=== PATIENT | male | born 1995 | race Caucasian/White ===

== ENCOUNTER 2019-08-11 13:50 | Outpatient (CLI) | payer OTHER, SELFPAY ==
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
== END 2019-08-11 13:51 | disposition home or self-care (01) ==
LOC: CHSIMG 13:52
PROVIDERS: PCP Family Medicine; Visit Provider Family Medicine
DX: M54.5 Low back pain (principal); S16.1XXA Strain of muscle, fascia and tendon at neck level, initial encounter; M54.6 Pain in thoracic spine
CPT/HCPCS: 72040; 72072; 72100

== ENCOUNTER 2020-05-31 14:39 | Outpatient (CLI) | payer OTHER, SELFPAY ==
--- NOTE | ~2020-05-31 | XR_ITS ---
XR chest 2V DATE: 05/31/2020 15:07 INDICATION: Shortness of breath. Unexplained weight loss. TECHNIQUE: PA and lateral views COMPARISON: None FINDINGS: Normal heart size. No hilar or mediastinal enlargement. No pulmonary infiltrate or consolid ation, pleural effusion or pulmonary vascular congestion or pneumothorax. IMPRESSION: No active cardiopulmonary disease Reviewed, dictated and finalized at location A. [employer]
[2020-05-31 14:51] LABS: Basophils Absolute Auto 0.04 K/mm3 (0.00-0.10); Basophils Percent Auto 0.6 % (0.0-1.0); Eosinophils Absolute Auto 0.31 K/mm3 (0.02-0.50); Eosinophils Percent Auto 4.5 % (1.0-6.0); Hematocrit 48.6 % (40.0-54.0); Hemoglobin 16.9 g/dL (14.0-18.0); Immature Granulocyte Absolute 0.01 K/mm3 (0.00-0.00); Immature Granulocyte Percent A 0.1 % (0.0-0.0); Lymphocytes Absolute Auto 2.95 K/mm3 (1.10-4.50); Lymphocytes Percent Auto 42.7 % (18.0-42.0); Mean Corpuscular HGB Conc 34.8 g/dL (32.0-36.0); Mean Corpuscular Hemoglobin 30.1 pg (27.0-31.0); Mean Corpuscular Volume 86.6 fL (78.0-102.0); Mean Platelet Volume 9.6 fl (8.7-11.0); Monocytes Percent Auto 7.2 % (2.0-11.0); Neutrophils Absolute Auto 3.1 K/mm3 (1.7-7.2); Neutrophils Percent Auto 44.9 % (50.0-70.0); Platelet Count Result 374 K/mm3 (150-420); Red Blood Count 5.61 M/mm3 (4.70-6.10); Red Cell Distribution Width 11.6 % (11.6-14.4); White Blood Count 6.9 K/mm3 (4.8-10.8)
[2020-05-31 15:52] LABS: Erythrocyte Sedimentation Rate 2 mm/hr (0-15)
[2020-05-31 16:00] LABS: Alanine Aminotransferase 26 U/L (16-63); Albumin Level 4.5 g/dL (3.4-5.0); Alkaline Phosphatase 95 U/L (46-116); Anion Gap 11 mmol/L (8-16); Aspartate Amino Transferase 13 U/L (15-37); Bilirubin,Total 0.6 mg/dL (0.00-1.00); Blood Urea Nitrogen 6 mg/dL (7-18); Calcium 9.7 mg/dL (8.5-10.1); Carbon Dioxide 28 mmol/L (21-32); Chloride 101 mmol/L (98-108); Estimated Glomerular Filt Rate > 60; Glucose 101 mg/dL (70-99); Lipase 54 U/L (73-393); Osmolality Calculated 287 mOsm/kg (285-295); Potassium 4.1 mmol/L (3.5-5.1); Sodium 140 mmol/L (136-145); Thyroid Stimulating Hormone 1.03 uIU/mL (0.36-3.74); Total Protein 7.2 g/dL (6.4-8.2)
== END 2020-05-31 14:40 | disposition home or self-care (01) ==
LOC: CHSLAB 14:41
PROVIDERS: PCP Family Medicine; Visit Provider Physician Assistant
DX: R63.4 Abnormal weight loss (principal); R06.02 Shortness of breath
CPT/HCPCS: 36415; 71046; 80053; 83690; 84443; 85025; 85652

== ENCOUNTER → 2020-08-06 06:49 | Outpatient (CLI) | payer OTHER, SELFPAY ==
[2020-08-06 19:17] LABS: SARS-CoV-2 RNA PCR Negative
== END ==
PROVIDERS: PCP Family Medicine; Visit Provider Internal Medicine Gastroenterology
DX: Z01.812 Encounter for preprocedural laboratory examination (principal); Z20.822 Contact with and (suspected) exposure to COVID-19
CPT/HCPCS: C9803; U0003; U0005

== ENCOUNTER 2020-08-10 01:41 | Day surgery (SDC) | payer OTHER, SELFPAY ==
[2020-08-02 14:17] VITALS: BMI 23.6
[2020-08-10 12:03] VITALS: BP 139/92; PULSE 104; RESP 16; TEMP 36.6; O2SAT 100
[2020-08-10] MEDS: LACTATED RINGERS 1,000 ML 150 ML IV CONT (12:06)
--- NOTE | 2020-08-10 12:21 | WPDANESEPPF ---
Anes - Initial Pre Proc Eval Procedure: Operation Date: 08/10/20 13:15 Proposed Procedures p Esophagogastroduodenoscopy & Colonoscopy - Kota Galeas MD Date/Time: 08/10/20 12:21 Surgeon: Kota Galeas MD Pre Op Diagnosis: weight loss, nausea Patient Data Age: 25 Gender: M Height: 5 ft 9 in Weight: 68.4 kg Last Vital Signs Temp 36.6 C 08/10/20 12:03 Pulse 104 H 08/10/20 12:03 Resp 16 08/10/20 12:03 BP 139/92 H 08/10/20 12:03 Pulse Ox 100 08/10/20 12:03 Allergies Allergy/AdvReac Type Severity Reaction Status Date / Time No Known Allergies Allergy Verified 08/10/20 12:02 Home Medications Medication Instructions Recorded Confirmed Type No Home Medications 07/26/20 08/10/20 History Patient hx anesthesia problems: none Family hx anesthesia problems: none PMFSH Past Medical History Medical History Constipation Marijuana abuse Tobacco abuse Weight loss Social History Social History Smoking packs per day: 1 Smoking cigarettes per day: 20.0 Years smoked: 12 Smoking pack-years: 12.00 Smoking status: Current every day smoker Tobacco type: cigarettes Alcohol intake: never Substance use: current Substance use type: does not use Living arrangements: with family Gender identity (if verbalized by the patient): Male Spiritual care concerns: No Anes - Eval Final PreProcedure Day of Procedure 08/10/20 12:21 Patient weight: normal Heart: regular rate and rhythm Lungs: decreased breath sounds Airway: Mallampati scale class II Neurological: alert and oriented Last oral intake: >/= 8 hours ASA classification: III Emergent: no Anesthetic plan: proceed Anesthesia type and monitoring: general GIVS and standard monitoring Informed Consent: The patient's anesthetic plan and its attendant risks and benefits were discussed with the patient/family/POA. Questions were solicited and answers provided to the satisfaction of the patient/family/POA.
--- NOTE | 2020-08-10 12:33 | WPDHPUPDATE1 ---
History and Physical Update Update Date/Time: 08/10/20 12:33 History and Physical has been reviewed, including an updated exam of the patient. There are NO changes in the patient's condition. Risks, benefits, and alternatives have been discussed and questions answered. Patient agrees to proceed with procedure.
[2020-08-10 13:08] VITALS: BP 97/55; PULSE 77; RESP 26; O2SAT 96
[2020-08-10 13:18] VITALS: BP 99/60; PULSE 70; RESP 25; O2SAT 96
[2020-08-10 13:28] VITALS: BP 103/58; PULSE 67; RESP 24; O2SAT 97
[2020-08-10 13:31] VITALS: BP 106/66; PULSE 67; RESP 24; O2SAT 97
== END 2020-08-10 13:41 | disposition home or self-care (01) ==
PROVIDERS: PCP Family Medicine; Visit Provider Internal Medicine Gastroenterology
PROC: 0DJ08ZZ Inspection of Upper Intestinal Tract, Via Natural or Artificial Opening Endoscopic (ICD-10-PCS; CPT 43235; principal; 2020-08-10 13:15)
DX: R63.4 Abnormal weight loss (principal); K64.8 Other hemorrhoids; D12.3 Benign neoplasm of transverse colon; K63.3 Ulcer of intestine; F17.210 Nicotine dependence, cigarettes, uncomplicated; F12.90 Cannabis use, unspecified, uncomplicated
CPT/HCPCS: 45385; 45380; 88305; J2250; J2704; J7120

== ENCOUNTER 2020-09-15 15:16 | Outpatient (CLI) | payer OTHER, SELFPAY ==
--- NOTE | ~2020-09-15 | CT_ITS ---
EXAMINATION: CT abdomen pelvis w con DATE: 09/15/2020 15:42 INDICATION: Abnormal weight loss, weakness and epigastric pain TECHNIQUE: Computed tomography (CT) of the abdomen and pelvis was performed with 100 mL Omnipaque-350 intravenous contrast. Automated exposure control and iterative reconstruction technique were employe d. The dose-length product was 232.85 mGy-cm. COMPARISON: None FINDINGS: Lung bases are clear. Visualized inferior heart is normal. No pericardial or pleural effusion. Liver, gallbladder, spleen, pancreas, bilateral adrenal glands and kidneys are normal. Bladder is normal. N o abnormal bowel wall thickening or obstruction. Appendix is normal. No free intraperitoneal gas or f luid. No pathologically enlarged abdominal or pelvic lymphadenopathy. Small sclerotic bone islands at the right sacral ala and right femoral neck. IMPRESSION: 1. Normal CT of the abdomen and pelvis. No evident malignancy or acute intra-abdominal/pelvic process . Reviewed, dictated and finalized at location A. IMPRESSION: 1. Normal CT of the abdomen and pelvis. No evident malignancy or acute intra-ab dominal/pelvic process.
== END 2020-09-15 15:17 | disposition home or self-care (01) ==
LOC: ANHIMG 15:16
PROVIDERS: PCP Family Medicine; Visit Provider Internal Medicine Gastroenterology
DX: R63.4 Abnormal weight loss (principal)
CPT/HCPCS: 74177; Q9967